=== PATIENT | male | born 1955 | race Caucasian/White ===

== ENCOUNTER 2016-11-27 11:00 | Inpatient (IN) | payer BC ==
[2016-11-20 14:09] VITALS: BMI 27.0
--- NOTE | 2016-11-20 14:47 | PAT Medication Instructions ---
Service Date Nov 20, 2016. Current Home Medication List Atorvastatin (Lipitor), 20 MG PO QAM Diclofenac (Voltaren), 75 MG PO BID Ranitidine (Zantac), 150 MG PO QPM Medication Instructions For Your Scheduled Surgery - Check with surgeon for instructions: Diclofenac (Voltaren), 75 MG PO BID - Take the following medications the morning of surgery with a sip of water: Atorvastatin (Lipitor), 20 MG PO QAM - Take the following medications as scheduled the night before surgery: Ranitidine (Zantac), 150 MG PO QPM If you have any questions please call us at [phone] (Genie Mosley PA-C) or [phone] or [phone]
--- NOTE | 2016-11-20 15:29 | DIAGNOSTIC IMAGING REPORT ---
TWO VIEW CHEST CLINICAL HISTORY: Preoperative examination. FINDINGS: PA and lateral chest radiographs are obtained. No prior studies are available for comparison at the time of dictation. The heart is top normal for projection. The mediastinal contour is within normal limits. There are calcified mediastinal and hilar lymph nodes. There is minimal bibasilar atelectasis. The lungs and pleural spaces are otherwise clear. There is no pneumothorax. The bony thorax appears intact. IMPRESSION: No active disease in the chest. Electronically signed by: Brian Ramos M.D. 11/20/2016 3:27 PM Dictated Date/Time: 11/20/2016 3:26 PM
[2016-11-20 15:45] LABS: BASO ABS # 0.04 K/uL (0-0.2); COMPLETE YES; EOS % 5.6 %; IG% 0.5 %; LYMPH % 38.9 %; LYMPH ABS # 1.59 K/uL (1.2-3.4); MEAN CORPUSCULAR HEMOGLOBIN 28.8 pg (25-34); MEAN CORPUSCULAR HGB CONC 33.5 g/dl (32-36); MONO % 9.3 %; NEUT % 44.7 %; PLATELET COUNT 222 K/uL (130-400); RED BLOOD COUNT 4.65 M/uL (4.7-6.1); WHITE BLOOD COUNT 4.09 K/uL (4.8-10.8)
[2016-11-20 15:54] LABS: PARTIAL THROMBOPLASTIN RATIO 1.1; PROTHROMBIN TIME (PATIENT) 11.2 SECONDS (9.0-12.0)
[2016-11-20 16:35] LABS: BUN/CREATININE RATIO 19.1 (10-20); CREATININE 0.97 mg/dl (0.60-1.40)
[2016-11-20 16:41] LABS: CALCIUM 9.1 mg/dl (8.5-10.1)
--- NOTE | 2016-11-26 07:07 | HISTORY & PHYSICAL EXAMINATION ---
DATE OF ADMISSION: 11/27/2016 CHIEF COMPLAINT: Right knee pain and discomfort. HISTORY OF PRESENT ILLNESS: 61-year-old gentleman who lives out in [place], who presents for surgical treatment of his right knee. He has a fairly long history of right knee pain and discomfort. He had his right knee scoped back in 2007 which really did not help much at all. Even at that time, they noticed that he had a full thickness chondral lesion of his lateral femoral condyle. He has had persistent pain and discomfort in his right knee which really limited his skiing which is his passion. He has difficulty particularly when he turns to the right side, when he really puts more weight on his right leg and has more pain. He is having more and more difficulty doing this and he would like to have it fixed. Once again, his passion is skiing and he has been having difficulty doing that. He does not have to wait to have this done locally in [place], with a good support system he came here and stays with his brother, I believe. He is going to stay around for 6 weeks. He would like to proceed with surgical treatment. PAST MEDICAL HISTORY: 1. Elevated cholesterol. 2. Gastroesophageal reflux disease. PAST SURGICAL HISTORY: 1. Fascial Sling for facial nerve palsy. 2. Quervain's disease. 3. Trigger finger. 4. Right knee scope in 2007. ALLERGIES: AMOXICILLIN. CURRENT MEDICINES: Include: 1. Atorvastatin 20 mg a day. 2. Ranitidine 150 mg a day. 3. Glucosamine. 4. Diclofenac. SOCIAL HISTORY: A 61-year-old male, who lives in [place]. He is single. Rare alcohol intake. Avid skier. FAMILY HISTORY: Significant for diabetes and breast cancer. REVIEW OF SYSTEMS: Negative for diabetes, neurologic problems, vascular problems and bleeding disorders. No history of DVT or PE. No chest pain. PHYSICAL EXAMINATION: GENERAL: Reveals a healthy, pleasant, middle-aged male. He looks to be in good health. HEENT: Benign. 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 NECK: Supple. No lymphadenopathy. LUNGS: Clear to auscultation. HEART: Has regular rate and rhythm. ABDOMEN: Soft, nontender and nondistended. EXTREMITIES: Grossly neurovascularly intact except as follows: Examination of the right leg reveals the patient walks with valgus alignment to his knee. He has got small knee effusion. He is tender over the lateral joint line. Range of motion is 0-120. He has got no instability. Rosanne's caused a little bit of clicking laterally. No pain with hip motion. X-RAYS: X-rays of the right knee were reviewed. It shows advanced right knee lateral compartment DJD. He has got complete loss of his lateral joint space. He has got subchondral sclerosis. He has osteophytes off the lateral tibial plateau. He does have an ossicle around his patellar tendon as well. ASSESSMENT: A 61-year-old fairly avid skier, with advanced right knee lateral compartment degenerative joint disease. He has failed conservative treatment. He had his knee scope in 2007 which did not help much at all. It is really affecting his ability to skiing; he would like to have it fixed. PLAN: We are going to take him to the operating room and do a right total knee replacement. The risks and benefits of this procedure were explained to the patient including but not limited to DVT, PE, , infection, neurological injury, vascular injury, bleeding problem, pain, limited range of motion, stiffness, failure to relieve his symptoms, incomplete relief of symptoms, need for further surgery in the future, fracture, leg length inequality, nerve palsy, incomplete relief of symptoms, etc. The patient understands and desires to proceed. Informed consent was obtained. As far as discharge plans, he is going to go and stay with his brother. He is going to do outpatient therapy. TIA
[2016-11-27] VITALS (7 sets, daily range): BP systolic 110–146; BP diastolic 61–81; PULSE 50–57; TEMP 36.4–36.6; O2SAT 96–100; Ht 175.3 cm; Wt 84.5 kg
[~2016-11-27] VITALS: Ht 175.3 cm; Wt 84.5 kg
[~2016-11-27 11:00] MED LIST: ACETAMINOPHEN 500 MG TAB PO SCH; ATOR-22 PO; ATROPINE SULFATE 0.1 MG/ML 5ML SYR IV PRN; BUPIVACAINE 0.25% 30 ML VIAL ONE; BUPIVACAINE 0.5 % 5 MG/1 ML PF 10ML VIAL ONE; CEFAZOLIN 2000 MG/60 ML D5W 60 ML IV SCH; DICL-201 PO; EpHEDrine SULFATE INJ 50 MG/ML AMP IV PRN; FAMOTIDINE 20 MG TAB PO SCH; FENTANYL CITRATE INJ 50 MCG/1 ML 2 ML VIAL IV PRN; GABAPENTIN 300 MG CAP PO SCH; HYDROmorphone INJ 1 MG/ML SYR IV PRN; LABETALOL HCL IV 5 MG/ML 20ML IV PRN; LACTATED RINGER'S 1000ML IV SCH; LACTATED RINGER'S 500 ML IV SCH; MEPERIDINE HCL 25 MG/ML CARP IV PRN; METOCLOPRAMIDE HCL 10 MG TAB PO SCH; ONDANSETRON INJ 2 MG/ML 2 ML VIAL IV PRN; SCOPOLAMINE 1.5 MG TDSY TD SCH; TRANEXAMIC ACID INJ 1,000 MG in SODIUM CHLORIDE 0.9% 100ML 100 ML IV SCH; ZNTT/150 PO
[2016-11-27] MEDS ORDERED: MIDAZOLAM HCL 1 MG/ML 2ML VIAL ONE (12:43)
--- NOTE | 2016-11-27 12:45 | History & Physical Bridge Note ---
H&P Re-Evaluation Bridge Note: I have examined the patient, reviewed the History & Physical and in the interval since the performance of the History & Physical I have noted the following changes of clinical significance: No changes noted
[2016-11-27] MEDS ORDERED: SODIUM CHLORIDE 0.9% PF 50 ML VIAL ONE (12:47)
[2016-11-27] MEDS ORDERED: BUPIVACAINE/EPINEPHRINE 0.25% 1:200,000 30 ML VIAL ONE (12:47)
[2016-11-27] MEDS ORDERED: BUPIVACAINE LIPOSOME 1/3% 266 MG/20 ML VIAL INFIL ONE (12:47)
[2016-11-27] MEDS ORDERED: BACITRACIN 50000 UNIT VIAL ONE (12:47)
[2016-11-27] MEDS: BUPIVACAINE LIPOSOME 266 MG, BUPIVACAINE/EPINEPHRINE INJ 50 ML, SODIUM CHLORIDE 0.9% PF... INFIL SCH ×6 (13:37→14:04)
[2016-11-27] MEDS ORDERED: BUPIVACAINE/EPINEPHRINE 0.5% MPF 1:200,000 30 ML VIAL ONE (13:58)
[2016-11-27] MEDS ORDERED: EpHEDrine SULFATE 50MG/5ML SYR ONE (14:32)
[2016-11-27] MEDS ORDERED: LIDOCAINE HCL 2% 2 ML VIAL (20MG/ML) ONE (14:32)
[2016-11-27] MEDS ORDERED: PROPOFOL IV EMULSION 10 MG/ML 20 ML VIAL IV ONE (14:32)
[2016-11-27] MEDS ORDERED: SILVER SULFADIAZINE 1% CR 50 GM JAR EXT PRN (14:45)
[2016-11-27] MEDS ORDERED: TAMSULOSIN HCL 0.4 MG CAP PO PRN (14:45)
[2016-11-27] MEDS ORDERED: DiphenhydrAMINE HCL 50 MG/ML VIAL IV PRN (14:45)
[2016-11-27] MEDS ORDERED: BISACODYL 10 MG SUPP PR PRN (14:45)
[2016-11-27] MEDS ORDERED: METOCLOPRAMIDE HCL INJ 5 MG/ML 2 ML VIAL IV PRN (14:45)
[2016-11-27] MEDS ORDERED: ALUMINUM/MAGNESIUM/SIMETH (MAALOX MAX) 30 ML UDC PO PRN (14:45)
[2016-11-27] MEDS ORDERED: MoRPHine SULFATE 2 MG/ML CARP IV PRN (14:45)
[2016-11-27] MEDS ORDERED: ZOLPIDEM TARTRATE 5 MG TAB PO PRN (14:45)
[2016-11-27] MEDS ORDERED: MAGNESIUM HYDROXIDE SUSP 30 ML UDC PO PRN (14:45)
--- NOTE | 2016-11-27 14:45 | [facility] Post Operative Brief Note ---
Immediate Operative Summary Operative Date Nov 27, 2016. Pre-Operative Diagnosis Right Knee Degenerative Joint Disease Post-Operative Diagnosis Right Knee Degenerative Joint Disease Procedure(s) Performed Right Total Knee Arthroplasty, Cemented Surgeon Dr. Preciado Station Captain Surgeon(s) Rommel Yost PA-C Estimated Blood Loss 50 ml Findings Right Knee DJD Fluids (cc crystalloids) 1800 cc Specimens A: Right Knee Bone and Tissue Drains None Anesthesia Spinal Complication(s) None Disposition Recovery Room / PACU
--- NOTE | 2016-11-27 15:16 | DIAGNOSTIC IMAGING REPORT ---
TWO VIEWS RIGHT KNEE CLINICAL HISTORY: Postoperative examination. FINDINGS: AP and crosstable lateral portable views of the right knee are obtained. A right knee arthroplasty is in near anatomic alignment. There has been undersurface remodeling of the patella. No acute fracture is seen. There are expected postoperative changes around the knee including skin clips, soft tissue edema, and subcutaneous gas. There is advanced atherosclerotic calcification of the regional arteries. IMPRESSION: Expected postoperative changes status post right knee arthroplasty. No acute fracture is seen. Electronically signed by: Brian Ramos M.D. 11/27/2016 3:15 PM Dictated Date/Time: 11/27/2016 3:15 PM
--- NOTE | 2016-11-27 16:58 | Anesthesiology Progress Note ---
Anesthesia Post Op Note Date & Time Nov 27, 2016 at 16:57 Vital Signs Pain Intensity: 0 Vital Signs Past 12 Hours Date Time Temp Pulse Resp B/P Pulse Ox O2 Delivery O2 Flow Rate FiO2 11/27/16 16:45 36.4 54 18 134/78 98 2.0 11/27/16 16:00 36.2 58 18 130/70 98 Nasal Cannula 2 11/27/16 15:50 61 18 120/71 99 Nasal Cannula 2 11/27/16 15:40 36.1 59 18 125/65 99 Nasal Cannula 2 11/27/16 15:30 57 18 125/66 100 Nasal Cannula 2 11/27/16 15:20 57 18 126/67 100 Nasal Cannula 2 11/27/16 15:10 61 18 129/61 100 Mask 10 11/27/16 15:00 62 18 116/66 100 Mask 10 11/27/16 14:50 36. 68 14 126/62 97 Mask 10 11/27/16 11:26 36.5 53 20 146/71 Room Air Notes Mental Status: alert / awake / arousable, participated in evaluation Pt Amnestic to Procedure: Yes Nausea / Vomiting: adequately controlled Pain: adequately controlled Airway Patency, RR, SpO2: stable & adequate BP & HR: stable & adequate Hydration State: stable & adequate Neuraxial Anesthesia: was administered, sensory block is resolving Anesthetic Complications: no major complications apparent
[2016-11-27] MEDS: CHECK SCOPOLAMINE PATCH PLACEMENT SCH ×2 (17:01→23:22)
[2016-11-27] MEDS: D5W AND 1/2NSS + 20MEQ KCL 1,000 ML IV SCH (17:02)
[2016-11-27] MEDS: KETOROLAC TROMETHAMINE 30 MG/ML VIAL IV. SCH ×2 (18:01→23:23)
[2016-11-27] MEDS: FERROUS GLUCONATE 324 MG TAB PO SCH (18:01)
--- NOTE | 2016-11-27 18:56 | OPERATIVE REPORT ---
DATE OF OPERATION: 11/27/2016 SURGEON: Chris Preciado MD [employer] OPERATOR: ESTEFANI Phillips PREOPERATIVE DIAGNOSIS: Right knee degenerative joint disease. POSTOPERATIVE DIAGNOSIS: Same. PROCEDURE PERFORMED: Right cemented posterior stabilized total knee arthroplasty. COMPLICATIONS: None. ESTIMATED BLOOD LOSS: 50 mL. FLUID REPLACEMENT: 1800 mL crystalloid fluid replacement. ANESTHESIA: Spinal with adductor canal block. DRAINS: None. SPECIMENS: Right knee sent for pathology. OPERATIVE INDICATIONS: The patient is a 61-year-old very active gentleman from [place] who has had an 8-10 year history of right knee pain and discomfort, unresponsive to conservative treatment. He had his right knee scoped in 2007, which did not help at all. At that point, he had a full thickness chondral lesion of his lateral femoral condyle. He has exhausted conservative care. It is really limiting his lifestyle and ability to ski, which is his passion. He has elected to proceed with total. OPERATIVE FINDINGS: Operative findings revealed advanced right knee DJD. He had grade 4 [id number] disease of the lateral femoral condyle and posterolateral tibial plateau. The rest of his knee was fairly well preserved. He did have a valgus alignment to his knee. He had a moderate sized knee joint effusion. He did have eburnation at the posterolateral aspect of his tibial plateau. OPERATIVE IMPLANTS: Operative implants consisted of: 1. Biomet Vanguard size 70 right posterior stabilized femoral component. 2. Biomet size 75 tibial tray. 3. A 12-mm posterior stabilized polyethylene insert. 4. A 34 x 8.5 All-Poly patella. OPERATIVE PROCEDURE: The patient was taken to the operating room, identified and placed on the operating table in the supine position. All contact areas were appropriately padded. IV antibiotics were provided by the anesthesia team. A spinal anesthetic had been implemented in the holding area along with an adductor canal block. A Roberts catheter was placed in sterile fashion. Right thigh tourniquet was then placed and the right lower extremity was then prepped and draped in the usual sterile fashion. The right leg was elevated and exsanguinated using an Esmarch and tourniquet was placed at 300 mmHg. An anterior approach to the right knee was then performed through a longitudinal incision centered over the patella. Sharp dissection was carried out through the subcutaneous tissues down to the level of the extensor mechanism. A medial parapatellar arthrotomy incision was made. Some subperiosteal dissection was carried out medially. The fat pad was resected from beneath the patellar tendon. The lateral patellofemoral ligament was released. The patella was everted and the knee was flexed. The osteophytes were taken off the distal femur. The ACL and PCL were then released from the distal femur and the tibia subluxated anteriorly. The external tibial alignment jig was then placed in the anterior face of the tibia and adjusted 12 mm medially. Proximal tibial cut was made to remove about 3-4 mm of bone from the medial side. The tibia was sized to a size 75. Attention was then drawn to the femur. The distal femur was entered with a sharp drill bit. Intramedullary canal was suctioned. A right 5-degree valgus cutting guide was placed. Distal femoral cutting block was pinned in place. The distal femoral cut was made to take an additional 3 mm of bone off the distal femur. The femur was then sized to a size 75. We did downsize this just slightly. The AP cutting block was pinned parallel to the epicondylar axis, which was 4 degrees of external rotation. The anterior cut, anterior chamfer cut, posterior cut, and posterior chamfer cuts were made. Box cutting guide was placed and adjusted slightly lateral and the box cut was made. I did bring the knee out into full extension and there was no lateral release needed to equalize the extension gap. In flexion, I did have to release the popliteus in order to equalize the flexion gap. The osteophytes were taken off the posterior aspect of the femur. The remnants of the medial and lateral menisci were excised. Trial femoral component was placed. The tibial tray was pinned in maximum external rotation and drill and stem punch were used to create defect in proximal tibia for the tibial tray. The knee was then trialed and the 12-mm insert fit most appropriately. Attention was drawn to the patella. The patella was cleaned of all soft tissues. Patellar thickness measured 25 mm and was cut down to 15. It was sized to a size 34 patella. Lug holes were drilled for a 34 patella. Lateral osteophyte was removed. Patella button was placed. Knee was taken through range of motion and the patella tracked nicely with no thumbs test. Attention was then drawn toward placement of permanent components. All trial components were removed. A bone plug was placed in the distal femur to limit blood loss. A double batch of Palacos G cement was mixed. A right size 70 posterior stabilized femoral component, size 75 tibial tray, 12-mm posterior stabilized polyethylene insert, and a 34 x 8.5 All-Poly patella then cemented in place. The knee was brought out into full extension until cement hardened. A final cement check was then performed. Pericapsular tissues were injected with 100 mL of a combination of 20 mL of Exparel, 30 mL of normal saline, and 50 mL of 0.25% Marcaine with epinephrine. However, we did not get all of this material injected as only about 3 syringes (30 ccs) were injected and the rest was spilled accidentally by the supply chain tech. Therefore, a small portion of this was injected. We did inject an additional 30 mL of 0.5% Marcaine with epinephrine to help with postoperative anesthesia concerns as well as hemostasis. The patient did receive 1 gram of tranexamic acid. The tourniquet was then let down for a final tourniquet time of 59 minutes. Hemostasis was assured with use of electrocautery. The wound was once again irrigated. The extensor mechanism was then closed with a combination of #1 PDS suture and #1 Vicryl suture in a [id number] fashion. Extensor mechanism was checked and found to be intact. The subcutaneous tissues were then closed with 2-0 Dexon suture in a buried interrupted fashion. Skin was closed with skin mitra. The leg was then cleaned and dried and a sterile dressing of Xeroform, 4 x 4, sterile cast padding and Fercho bandage were applied. The patient then transferred to the recovery room in stable condition. The patient tolerated the procedure well with no complications. All needle and sponge counts were correct at the end of the operation. I attest to the content of the Intraoperative Record and any orders documented therein. Any exceptions are noted below. MTDD
[2016-11-27] MEDS: TAPENTADOL ER 50 MG TABCR PO SCH (20:57)
[2016-11-27] MEDS: DOCUSATE SODIUM 100 MG CAP PO SCH (20:58)
[2016-11-27] MEDS: RANITIDINE HCL 150 MG TAB PO SCH (20:58)
[2016-11-27] MEDS: ASPIRIN 325 MG ECTAB PO SCH (20:58)
[2016-11-27] MEDS: OXYCODONE HCL IR 5 MG TAB (IMMEDIATE RELEASE) PO PRN (20:59)
[2016-11-27] MEDS: ACETAMINOPHEN 500 MG TAB PO SCH (21:46)
[2016-11-27] MEDS: CEFAZOLIN IV 2,000 MG in DEXTROSE 5% 50ML 50 ML IV SCH (21:46)
[2016-11-27] MEDS ORDERED: TRANEXAMIC ACID INJ 1,000 MG in SODIUM CHLORIDE 0.9% 100ML 100 ML IV SCH (22:00)
[2016-11-28] VITALS (7 sets, daily range): BP systolic 100–148; BP diastolic 56–90; PULSE 52–77; TEMP 36.5–37.3; O2SAT 94–98
[2016-11-28] MEDS: D5W AND 1/2NSS + 20MEQ KCL 1,000 ML IV SCH ×2 (00:50→08:37)
[2016-11-28] MEDS: KETOROLAC TROMETHAMINE 30 MG/ML VIAL IV. SCH ×4 (05:33→23:19)
[2016-11-28] MEDS: ACETAMINOPHEN 500 MG TAB PO SCH ×3 (05:33→22:03)
[2016-11-28] MEDS: CEFAZOLIN IV 2,000 MG in DEXTROSE 5% 50ML 50 ML IV SCH (05:36)
[2016-11-28 06:31] LABS: HEMATOCRIT 32.3 % (42-52); MEAN CELL VOLUME 84.8 fL (80-100); MEAN CORPUSCULAR HEMOGLOBIN 28.6 pg (25-34); MEAN CORPUSCULAR HGB CONC 33.7 g/dl (32-36); MEAN PLATELET VOLUME 9.8 fL (7.4-10.4); PLATELET COUNT 216 K/uL (130-400); RED BLOOD COUNT 3.81 M/uL (4.7-6.1); WHITE BLOOD COUNT 5.94 K/uL (4.8-10.8)
[2016-11-28 07:06] LABS: BUN/CREATININE RATIO 12.8 (10-20); CALCIUM 7.6 mg/dl (8.5-10.1); CREATININE 0.96 mg/dl (0.60-1.40)
--- NOTE | 2016-11-28 07:39 | PROGRESS NOTE ---
DATE: 11/28/2016 DATE: 11/28/2016. SUBJECTIVE: A 61-year-old gentleman postop day 1 from right knee replacement, doing pretty well. He has a moderate amount of pain last night. Denies any chest pain or shortness of breath. Not feeling dizzy or lightheaded. OBJECTIVE: VITAL SIGNS: Temperature is 37.3. Vital signs stable. PHYSICAL EXAMINATION: GENERAL: Reveals a healthy, pleasant, middle-aged male. He is lying in bed, looks pretty comfortable. LUNGS: Clear to auscultation. HEART: Regular rate and rhythm. ABDOMEN: Soft, nontender, nondistended. EXTREMITY EXAMINATION: Grossly neurovascularly intact except as follows: Examination of the right lower extremity reveals the leg to be well aligned. Dressing is clean, dry and intact. No significant drainage. He can dorsiflex and plantarflex his foot appropriately. He is neurologically intact. LABORATORY DATA: Hemoglobin 10.9, hematocrit 32.3. Electrolytes are stable. ASSESSMENT: A 61-year-old gentleman postop day 1 from right knee replacement, doing pretty well. Having a moderate amount of pain which is not unexpected. PLAN: 1. DVT prophylaxis including thigh-high TEDs, SCDs, and aspirin twice a day. 2. PT/OT. Weightbearing as tolerated. Right total knee protocol. 3. Pain control. Doing okay with current pain management. We will likely have to supplement with additional IV pain meds if it continues to be painful. 4. Disposition. Plan to discharge to home with home health once adequately recovered.
--- NOTE | 2016-11-28 08:09 | Anesthesiology Progress Note ---
Anesthesia Post Op Note Date & Time Nov 28, 2016 at 08:08 Vital Signs Pain Intensity: 0.0 Vital Signs Past 12 Hours Date Time Temp Pulse Resp B/P Pulse Ox O2 Delivery O2 Flow Rate FiO2 11/28/16 07:00 37.3 56 16 105/60 94 Room Air 11/28/16 03:29 36.8 55 14 100/56 95 Room Air 11/27/16 23:44 36.6 53 14 110/61 98 Room Air 11/27/16 23:15 Room Air Notes Mental Status: alert / awake / arousable, participated in evaluation Pt Amnestic to Procedure: Yes Nausea / Vomiting: adequately controlled Pain: adequately controlled Airway Patency, RR, SpO2: stable & adequate BP & HR: stable & adequate Hydration State: stable & adequate Neuraxial Anesthesia: sensory block resolved Anesthetic Complications: no major complications apparent
[2016-11-28] MEDS: MULTIVITAMIN TAB PO SCH (08:35)
[2016-11-28] MEDS: PANTOprazole SOD 40 MG TAB PO SCH (08:35)
[2016-11-28] MEDS: FERROUS GLUCONATE 324 MG TAB PO SCH ×3 (08:35→18:27)
[2016-11-28] MEDS: ASPIRIN 325 MG ECTAB PO SCH ×2 (08:36→20:56)
[2016-11-28] MEDS: ATORVASTATIN 20 MG TAB PO SCH (08:36)
[2016-11-28] MEDS: DOCUSATE SODIUM 100 MG CAP PO SCH ×2 (08:36→20:56)
[2016-11-28] MEDS: CHECK SCOPOLAMINE PATCH PLACEMENT SCH ×3 (08:36→23:18)
[2016-11-28] MEDS: TAPENTADOL ER 50 MG TABCR PO SCH ×2 (08:38→20:56)
[2016-11-28] MEDS: OXYCODONE HCL IR 5 MG TAB (IMMEDIATE RELEASE) PO PRN (08:42)
[2016-11-28] MEDS: ONDANSETRON INJ 2 MG/ML 2 ML VIAL IV PRN ×2 (10:40→18:26)
[2016-11-28] MEDS ORDERED: MORP15TA19 PO (21:37)
[2016-11-28] MEDS ORDERED: FRRG PO (21:37)
[2016-11-28] MEDS ORDERED: ASPEC325 PO (21:37)
[2016-11-28] MEDS ORDERED: OXYC-57 PO (21:37)
--- NOTE | 2016-11-28 21:39 | Discharge Instructions ---
Discharge Instructions Date of Service Nov 28, 2016. Admission Reason for Admission: Right Knee Degenerative Joint Disease Discharge Discharge Diagnosis / Problem: Right Knee Replacement Discharge Goals Goal(s): Decrease discomfort, Improve function, Increase independence, Improve disease control, Therapeutic intervention Activity Recommendations Activity Limitations: per Instructions/Follow-up section Weightbearing Status: Right weightbearing . Instructions / Follow-Up Instructions / Follow-Up ACTIVITY RECOMMENDATIONS: Physical Therapy: * You will go to physical therapy three times each week for four to six weeks after your surgery in order to regain your knee range of motion and to retrain your knee to work properly. * It is just as important to make sure you are getting your knee perfectly straight as it is to regain your knee bend. * Taking a pain pill an hour before therapy can help you have a more productive and comfortable therapy session. Home Exercise: * You were shown a series of exercises (heel props, heel slides, etc.) in the hospital. Do these exercises three to four times each day including the exercises you were shown in physical therapy. Walking: * Get up and walk several times each day. For the first four weeks, try not to stand or walk for more than one hour at a time. If you do stand or walk for more than one hour, you will not hurt anything, but your knee and leg will likely swell. * As you feel comfortable, you may change from the walker or crutches to a cane and then to independent walking. MEDICATIONS: New Medicine: * You will likely be taking one or more of these medications: 1. MS Contin - A long-acting pain medication. Take 1 tablet twice a day for the first ten days to decrease your baseline level of pain. 2. Percocet - A quick and shorter-acting pain medication. Take one to two tablets every four to six hours to lessen your pain. 3. Iron Sulfate - Take three times each day for the month after surgery to help you replace the blood lost during surgery. 4. Aspirin - Thins your blood to lessen the chance of forming a blood clot. * The most common side effects of pain medicine and iron are nausea and constipation. If nausea or constipation is too much of a problem or if you have any questions about your new medicines or doses, call [facility] at . We will try to help you manage these issues. VERY IMPORTANT TO READ AND REVIEW" Pain: * The immediate post-operative period after knee replacement surgery is often quite painful. * You are given a prescription for pain medicine. You should take it, as directed, when you need it, especially before physical therapy and before going to bed. Pain that interferes with sleep is very common and can last several months. * You will likely need pain medicine for the first four to six weeks. It will not stop all of the pain. The pain will lessen and as you feel better, you may change to milder pain medicine such as Tylenol. * The most common side effects of pain medicine are nausea and constipation, so don't take more than you need. SPECIAL CARE INSTRUCTIONS: TEDs/Elastic Stockings: * The white elastic stockings help limit swelling and prevent blood clots from forming in your legs. The more you wear them, the more they work. * Wear them for six weeks after knee replacement surgery and four weeks after partial knee replacement. Prevention of Infection: * Take antibiotics one hour before any dental cleaning, dental work, urological procedure, gastrointestinal procedure or any invasive surgery in order to prevent your new joint from getting infected. * You may get the antibiotics from the doctor performing the procedure or you may call our office at before and we will call in a prescription to the pharmacy of your choice. Things to Watch For: * Drainage from the incision site that occurs more than one week after your surgery. * Severely increased knee/leg pain or swelling. * Increased redness at the incision site. * Fever above 102 degrees Fahrenheit. * Unusual chest pain or shortness of breath. * Unusual pain or burning with urination. Call [facility] at with any of the above problems or if you have any questions about your medicines or recovery. FOLLOW UP VISIT: Make an appointment to see your doctor for approximately two weeks after surgery for a progress check and staple removal by calling the office at . Current Hospital Diet Patient's current hospital diet: Regular Diet Discharge Diet Recommended Diet: Regular Diet Procedures Procedures Performed: Right Total Knee Arthroplasty, Cemented Pending Studies Studies pending at discharge: no Medical Emergencies . Who to Call and When: Medical Emergencies: If at any time you feel your situation is an emergency, please call [phone] immediately. . Non-Emergent Contact Non-Emergency issues call your: Surgeon . "Provider Documentation" section prepared by Chris Preciado. . VTE Core Measure Inpt VTE Proph given/why not?: Other Anticoagulation, T.E.D. Stockings, SCD's
[2016-11-28] MEDS: RANITIDINE HCL 150 MG TAB PO SCH (22:03)
[2016-11-29] MEDS: KETOROLAC TROMETHAMINE 30 MG/ML VIAL IV. SCH (05:14)
[2016-11-29] MEDS: ACETAMINOPHEN 500 MG TAB PO SCH (05:15)
[2016-11-29 07:40] VITALS: BP 126/82; PULSE 58; TEMP 36.8; O2SAT 94
--- NOTE | 2016-11-29 08:43 | PROGRESS NOTE ---
DATE: 11/29/2016 SUBJECTIVE: A 61-year-old gentleman postop day 2 from a right knee replacement, doing pretty well. Pain seems to be a little bit better controlled today. No chest pain or shortness of breath. Not feeling dizzy or lightheaded. OBJECTIVE: VITAL SIGNS: Temperature 36.8. Vital signs stable. PHYSICAL EXAMINATION: EXTREMITIES: Examination of the right leg reveals the dressing to be clean, dry and intact. His leg is well aligned. He can dorsiflex and plantarflex his foot appropriately. NEUROLOGIC: He is neurologically intact. ASSESSMENT: A 61-year-old gentleman postop day 2 from a right knee replacement, doing pretty well. Pain is a little bit more than what he expected but not unreasonable. PLAN: 1. DVT prophylaxis including thigh-high TEDs, SCDs, and aspirin twice a day. 2. PT/OT. Weightbearing as tolerated. Right total knee protocol. 3. Pain control, doing pretty well with current pain regimen. 4. Disposition: Plan to discharge to home with some home health after therapy today.
[2016-11-29] MEDS: FERROUS GLUCONATE 324 MG TAB PO SCH (09:11)
[2016-11-29] MEDS: ATORVASTATIN 20 MG TAB PO SCH (09:13)
[2016-11-29] MEDS: PANTOprazole SOD 40 MG TAB PO SCH (09:13)
[2016-11-29] MEDS: MULTIVITAMIN TAB PO SCH (09:13)
[2016-11-29] MEDS: TAPENTADOL ER 50 MG TABCR PO SCH (09:14)
[2016-11-29] MEDS: OXYCODONE HCL IR 5 MG TAB (IMMEDIATE RELEASE) PO PRN (09:16)
[2016-11-29] MEDS: DOCUSATE SODIUM 100 MG CAP PO SCH (10:28)
[2016-11-29] MEDS: ASPIRIN 325 MG ECTAB PO SCH (10:29)
[2016-11-29 11:01] VITALS: BP 126/82; PULSE 58; TEMP 36.8; O2SAT 94
--- NOTE | 2016-12-11 09:28 | DISCHARGE SUMMARY ---
ADMITTING PHYSICIAN AND SURGEON: Dr. Preciado. ADMITTING DIAGNOSIS: Right knee degenerative joint disease. SURGERY PERFORMED: Right total knee arthroplasty. SECONDARY DIAGNOSES: Include elevated cholesterol and gastroesophageal reflux disease. CONSULTS: None obtained. HISTORY AND PHYSICAL EXAMINATION: Well documented in the patient's chart. HOSPITAL COURSE: The patient was admitted on 11/27/2016, underwent total knee arthroplasty, tolerated the procedure well. There were no complications. He was transferred to the PACU postoperatively and later to the orthopedic floor for further care. He was given Ancef for antibiotic prophylaxis and XIN stockings, SCDs and aspirin for DVT prophylaxis. Hemoglobin, hematocrit and vital signs were monitored during his hospital stay and remained stable. He developed some mild postoperative anemia, did not require any blood transfusions. There were no complications. By postoperative day 2, he was tolerating a general diet, pain was controlled with oral pain medicine. He was participating in physical therapy and had no signs or symptoms of deep vein thrombosis. On postoperative day 2, he was discharged home in good condition, set up with home health services, given printed discharge instructions including prescriptions for aspirin 325 mg b.i.d., and iron supplement, and Percocet. Continue his home medicines, continue physical therapy, weightbearing as tolerated, XIN stockings. Follow up in 10-12 days or sooner if there are any problems or concerns.
== END 2016-11-29 12:27 | disposition home health service (06) | DRG 470 ==
LOC: ENRESERVTM → ENRESERVDT → C.ACU 11:00 → C.3E 14:49
PROVIDERS: ADMIT Orthopaedic Surgery Sports Medicine; ATTEND Orthopaedic Surgery Sports Medicine
PROC: 0SRC0J9 Replacement of Right Knee Joint with Synthetic Substitute, Cemented, Open Approach (ICD-10-PCS; principal; 2016-11-27 13:00)
DX: M17.11 Unilateral primary osteoarthritis, right knee (principal); K21.9 Gastro-esophageal reflux disease without esophagitis; E78.00 Pure hypercholesterolemia, unspecified; M21.061 Valgus deformity, not elsewhere classified, right knee; M65.4 Radial styloid tenosynovitis [de Quervain]; R00.1 Bradycardia, unspecified; M25.461 Effusion, right knee; G89.18 Other acute postprocedural pain; Z79.899 Other long term (current) drug therapy; Z79.1 Long term (current) use of non-steroidal anti-inflammatories (NSAID)